=== PATIENT | male | born 1960 | race Caucasian/White ===

== ENCOUNTER 2018-02-24 09:20 | Outpatient (CLI) | payer MEDICARE ==
[2018-02-24] MEDS ORDERED: Iopamidol 370 76% 100 ML VIAL ONE (14:28)
== END 2018-02-24 09:21 | disposition home or self-care (01) ==
LOC: BICCT 09:20
PROVIDERS: ATTEND Internal Medicine Geriatric Medicine
DX: R94.5 Abnormal results of liver function studies; K80.20 Calculus of gallbladder without cholecystitis without obstruction
CPT/HCPCS: 74160

== ENCOUNTER 2018-05-30 12:01 | Outpatient (CLI) | payer MEDICARE ==
--- NOTE | 2018-05-30 13:12 | RAD ---
LUMBAR SPINE FOUR VIEWS: History: 58-year-old male with spondylosis lumbar region. Comparison: 04-25-18 FINDINGS: Mild levoscoliosis. Multilevel disc osteophytosis and facet arthrosis. No abnormal translation betwee n flexion and extension. IMPRESSION: Mild levoscoliosis with lumbar spondylosis. POS: [facility]
--- NOTE | 2018-05-30 14:10 | RAD ---
THREE VIEWS THORACIC SPINE: History: Radiculopathy thoracic region. FINDINGS: AP, lateral, and swimmer's view thoracic spine is obtained. The thoracic spine is unremarkable. No evidence of thoracic spine fractures, subluxation, or bony les ions seen. IMPRESSION: Normal three views thoracic spine. POS: [facility]
== END 2018-05-30 12:02 | disposition home or self-care (01) ==
LOC: RAD 12:01
PROVIDERS: ATTEND Nurse Practitioner Family
DX: M47.816 Spondylosis without myelopathy or radiculopathy, lumbar region (principal); M54.14 Radiculopathy, thoracic region; M41.9 Scoliosis, unspecified
CPT/HCPCS: 72072; 72100

== ENCOUNTER 2018-12-08 10:44 | Outpatient (CLI) | payer MEDICARE ==
--- NOTE | 2018-12-08 13:18 | RAD ---
CERVICAL SPINE 3 VIEWS: HISTORY: Neck pain. FINDINGS: Lateral views include neutral, flexion, and extension positioning. Vertebral body height and alignme nt are maintained. No abnormal translational motion upon flexion or extension. Mild osteophytosis. Cervicothoracic junction not well visualized. IMPRESSION: Mild degenerative changes. No acute osseous abnormalities are demonstrated. POS: [facility]
== END 2018-12-08 10:45 | disposition home or self-care (01) ==
LOC: RAD 10:44
PROVIDERS: ATTEND Nurse Practitioner Family
DX: M47.22 Other spondylosis with radiculopathy, cervical region (principal)
CPT/HCPCS: 72040

== ENCOUNTER 2019-03-16 14:30 | Outpatient (CLI) | payer MEDICARE ==
--- NOTE | 2019-03-16 15:42 | ULT ---
Venous duplex sonogram left lower extremity HISTORY: Left leg pain and edema. FINDINGS: The left common femoral vein and greater saphenous junction are evaluated along the femoral , deep femoral, popliteal and posterior tibial veins. There is good Doppler flow, compression, and augmentation. IMPRESSION: No sonographic evidence of DVT within the left lower extremity.
== END 2019-03-16 14:31 | disposition home or self-care (01) ==
LOC: ULT 14:30
PROVIDERS: ATTEND Family Medicine
DX: M79.605 Pain in left leg (principal)

== ENCOUNTER 2019-07-25 09:53 | Outpatient (CLI) | payer MEDICARE ==
--- NOTE | 2019-07-25 12:50 | MRI ---
MR OF THE CERVICAL SPINE WITHOUT CONTRAST: 07/25/19 INDICATION: History of radiculopathy. COMPARISON: Spinal radiographs dated 12/08/18. FINDINGS: Bone marrow signal intensity appears within normal limits. The visualized aspects of the posterior fossa and prevertebral soft tissues appear within normal limi ts. At C2-C3, there is mild facet joint degenerative change. At C3-C4, there is uncovertebral hypertrophy and facet hypertrophy greater on the right inducing mild right neural foraminal narrowing. At C4-C5, there is mild uncovertebral hypertrophy and mild to moderate facet joint degenerative alberto e. At C5-C6, there is a broad based bulge inducing mild central canal narrowing without definite cord co ntact. There is uncovertebral hypertrophy and facet joint degenerative change on the left causing mil d left neural foraminal narrowing. At C6-C7, there is no appreciable central canal or neural foraminal narrowing. At C7-T1, there is no appreciable central canal or neural foraminal narrowing. IMPRESSION: 1. Mild central canal narrowing and mild left neural foraminal narrowing at C5-C6. 2. Mild right neural foraminal narrowing at C3-C4. 3. Mild multilevel spondylosis of the cervical spine. POS: [facility]
== END 2019-07-25 09:54 | disposition home or self-care (01) ==
LOC: SCSMRI 09:53
PROVIDERS: ATTEND Nurse Practitioner Family
DX: M47.22 Other spondylosis with radiculopathy, cervical region (principal); M48.02 Spinal stenosis, cervical region
CPT/HCPCS: 72141

== ENCOUNTER 2019-08-09 09:30 | Outpatient (CLI) | payer MEDICARE ==
--- NOTE | 2019-08-09 10:09 | ULT ---
EXAM: Left lower extremity venous Doppler US HISTORY: left lower extremity edema and pain FINDINGS: Grayscale, color-flow, Doppler evaluation, spectral analysis of the left lower extremity venous struc tures is performed with 2-D imaging. The left common femoral, superficial femoral, popliteal, posterior tibial, proximal greater saphenous and profunda femoral veins are imaged. There is normal luminal compressibility, flow, and augmentation the visualized deep venous structures of the left lower extremity. IMPRESSION: No evidence of a deep vein thrombosis in the left lower extremity.
== END 2019-08-09 09:31 | disposition home or self-care (01) ==
LOC: ULT 09:30
PROVIDERS: ATTEND Physician Assistant
DX: M79.89 Other specified soft tissue disorders (principal)

== ENCOUNTER 2021-02-13 13:32 | Outpatient (CLI) | payer MEDICARE | END 2021-02-13 13:33 | disposition home or self-care (01) | LOC: BICMRI 13:32 | PROVIDERS: ATTEND Nurse Practitioner Family | DX: M47.812 Spondylosis without myelopathy or radiculopathy, cervical region (principal); M50.20 Other cervical disc displacement, unspecified cervical region; M48.02 Spinal stenosis, cervical region; M50.80 Other cervical disc disorders, unspecified cervical region | CPT/HCPCS: 72050; 72141 ==

== ENCOUNTER 2022-06-29 09:46 | Inpatient (IN) | payer MEDICARE, OTHER ==
[2022-06-29 11:08] LABS: ALT (SGPT) 21 U/L (8-55); AST (SGOT) 29 U/L (5-34); Albumin 3.7 g/dL (3.4-4.8); Alkaline Phosphatase 56 U/L (40-110); Anion Gap 20 mmol/L (10-20); BUN (Urea Nitrogen) 20 mg/dL (8.4-25.7); Calc. Creatinine Clearance 0 mL/min (70-130); Calcium 8.8 mg/dL (7.8-10.44); Carbon Dioxide 20 mmol/L (23-31); Chloride 101 mmol/L (98-107); Estimated GFR 33; Globulin 2.7 g/dL (2.4-3.5); Glucose 93 mg/dL (80-115); INR-International Normal Ratio 1.1; Potassium 3.8 mmol/L (3.5-5.1); Protein, Total 6.4 g/dL (5.8-8.1); Prothrombin Time 14.4 sec (12.0-14.7); Sodium 137 mmol/L (136-145)
[2022-06-29 11:09] LABS: PTT 26.1 sec (22.9-36.1)
[2022-06-29 11:46] LABS: Mean Corpuscular HGB CONC 34.2 g/dL (32.0-36.0); Mean Corpuscular Hemoglobin 34.3 pg (27.0-31.0); Red Blood Cell (RBC) Count 3.22 mill/uL (4.70-6.10); White Blood Cell (WBC) Count 2.4 thou/uL (4.8-10.8)
[2022-06-29 11:57] LABS: #Lymphocytes 0.4 thou/uL (1.20-3.40); #Monocytes 0.3 thou/uL (0.11-0.59); #Neutrophils 1.6 thou/uL (1.40-6.50); %Eosinophils 1.4 % (0.0-10.0); %Lymphocytes 17.4 % (21.0-51.0); %Monocytes 14.2 % (0.0-10.0); %Neutrophils 67.1 % (42.0-75.0); MDiff Complete? YES; Macrocytosis SLIGHT = 6-15 cells (100X) (0-5/hpf); Mean Platelet Volume 10.3 fL (7.4-10.4); Platelet Count 84 thou/uL (130-400); Platelet Morphology Comment Appears Decreased; Polychromasia MODERATE = 3-4 cells (100X) (0-2/hpf); RBC Distribution Width 14.4 % (11.5-14.5)
[2022-06-29] MEDS ORDERED: Acetaminophen 325 MG TAB ONE (12:49)
[2022-06-29] MEDS ORDERED: Acetaminophen 650 MG Suppository ONE (12:49)
[2022-06-29] MEDS ORDERED: hydrALAZINE 20 MG/ML VIAL SLOW IVP PRN (14:29)
[2022-06-29] MEDS ORDERED: Aspirin Chewable 81 MG TAB ONE (14:29)
[2022-06-29] MEDS ORDERED: Ondansetron ODT 4 MG TAB PO PRN (14:35)
[2022-06-29] MEDS ORDERED: Lorazepam 2 MG/ML VIAL IM PRN (14:43)
[2022-06-29] MEDS ORDERED: Lorazepam 1 MG TAB PO PRN (14:43)
[2022-06-29] MEDS ORDERED: Electrolyte Replacement Protocol FS PRN (14:45)
[2022-06-29 15:24] LABS: Bilirubin, Direct 0.6 mg/dL (0.1-0.3); Magnesium 1.2 mg/dL (1.6-2.6)
[2022-06-29 15:32] LABS: Phosphorus 1.3 mg/dL (2.3-4.7)
[2022-06-29] MEDS ORDERED: Multivit, Therapeutic 1 TAB PO SCH (18:00)
[2022-06-29] MEDS ORDERED: Folic Acid 1 MG TAB PO SCH (18:00)
[2022-06-29 19:02] LABS: Syphilis Antibody Nonreactive (Nonreactive); Syphilis Antibody Index 0.07 S/CO (<1.00 Non-Reactive)
[2022-06-29] MEDS ORDERED: Magnesium Sulfate In Water 4 GM in Premix Bag 1 BAG IVPB SCH (21:00)
[2022-06-29] MEDS: Lorazepam 1 MG TAB PO SCH ×2 (21:04→21:15)
[2022-06-29] MEDS: Aggrenox 200-25mg CAP PO SCH (21:15)
[2022-06-29] MEDS: Atorvastatin Calcium 40 MG TAB PO SCH (21:15)
[2022-06-29] MEDS: Famotidine 20 MG TAB PO SCH (21:16)
[2022-06-29] MEDS: PHOS-NAK 1 PKT PACK PO SCH (21:17)
[2022-06-29] MEDS: Nicotine 14 MG PATCH TD SCH (21:18)
[2022-06-29] MEDS: Thiamine HCl 200 MG/2 ML VIAL SLOW IVP SCH (21:18)
[2022-06-29 22:26] LABS: Amphetamine Not Detected (NotDetected); Barbiturates Screen Not Detected (NotDetected); Benzodiazepine Screen Not Detected (NotDetected); Cocaine Metabolite Screen Not Detected (NotDetected); Methadone Not Detected (NotDetected); Methamphetamine Not Detected (NotDetected); Opiate Screen Detected (NotDetected); Oxycodone Screen Not Detected (NotDetected); Phencyclidine (PCP) Not Detected (NotDetected); THC/Cannabinoid Screen Not Detected (NotDetected); Tricyclic Screen Not Detected (NotDetected)
[2022-06-29 23:30] VITALS: BMI 23.8
[2022-06-29] MEDS: Acetaminophen 325 MG TAB PO PRN (23:44)
[2022-06-30] MEDS ORDERED: Acetaminophen 500 MG TAB PO PRN (01:09)
[2022-06-30] MEDS ORDERED: Ibuprofen 200 MG TAB PO PRN (01:11)
[2022-06-30] MEDS ORDERED: Acetaminophen 325 MG TAB PO SCH (01:15)
[2022-06-30] MEDS ORDERED: Pancrelipase DR 12,000 1 CAP ONE ×2 (01:23→02:11)
[2022-06-30] MEDS: PHOS-NAK 1 PKT PACK PO SCH ×3 (01:27→10:47)
[2022-06-30] MEDS: Lorazepam 1 MG TAB PO SCH ×5 (03:30→21:54)
[2022-06-30] MEDS: Sodium Chloride 0.9% 1,000 ML IV SCH ×4 (03:43→22:11)
[2022-06-30 05:55] LABS: ALT (SGPT) 24 U/L (8-55); AST (SGOT) 37 U/L (5-34); Albumin 3.4 g/dL (3.4-4.8); Alkaline Phosphatase 61 U/L (40-110); Anion Gap 17 mmol/L (10-20); BUN (Urea Nitrogen) 23 mg/dL (8.4-25.7); Bilirubin, Total 0.7 mg/dL (0.2-1.2); Calc. Creatinine Clearance 44 mL/min (70-130); Calcium 8.6 mg/dL (7.8-10.44); Carbon Dioxide 22 mmol/L (23-31); Cardiac Risk 2.1 (Less than 4.5); Chloride 100 mmol/L (98-107); Cholesterol 98 mg/dl (< 200 Desired); Estimated GFR 34; Globulin 2.7 g/dL (2.4-3.5); Glucose 100 mg/dL (80-115); HDL Cholesterol 47 mg/dL (>60 Neg Risk); LDL Cholesterol, Calculated 40 mg/dL; Potassium 3.5 mmol/L (3.5-5.1); Protein, Total 6.1 g/dL (5.8-8.1); Sodium 135 mmol/L (136-145); Triglycerides 53 mg/dL (Less than 150)
[2022-06-30 06:44] LABS: Magnesium 2.3 mg/dL (1.6-2.6)
[2022-06-30] MEDS ORDERED: Potassium Chloride 20 MEQ TAB PO SCH (10:30)
[2022-06-30] MEDS: Aggrenox 200-25mg CAP PO SCH ×2 (10:47→21:55)
[2022-06-30] MEDS: Multivit, Therapeutic 1 TAB PO SCH (10:48)
[2022-06-30] MEDS: Aspirin 81 mg Enteric Coated Tablet PO SCH (10:48)
[2022-06-30] MEDS: Famotidine 20 MG TAB PO SCH ×2 (10:48→21:55)
[2022-06-30] MEDS: Folic Acid 1 MG TAB PO SCH (10:48)
[2022-06-30] MEDS ORDERED: Lorazepam 1 MG TAB PO PRN (14:43)
[2022-06-30] MEDS: Nicotine 14 MG PATCH TD SCH (17:43)
[2022-06-30] MEDS: Thiamine HCl 200 MG/2 ML VIAL SLOW IVP SCH (17:43)
[2022-06-30] MEDS: Atorvastatin Calcium 40 MG TAB PO SCH (21:55)
[2022-06-30] MEDS: Loperamide HCl 1 MG/7.5 ML UDCUP PO PRN (22:11)
[2022-06-30] MEDS ORDERED: Sodium Chloride 0.9% 1,000 ML IV SCH (22:34)
[2022-07-01] MEDS: Acetaminophen 325 MG TAB PO PRN (03:41)
[2022-07-01] MEDS: Lorazepam 1 MG TAB PO SCH ×2 (03:42→09:46)
[2022-07-01] MEDS: Ondansetron ODT 4 MG TAB PO PRN (03:42)
[2022-07-01 06:06] LABS: ALT (SGPT) 21 U/L (8-55); AST (SGOT) 34 U/L (5-34); Albumin 3.8 g/dL (3.4-4.8); Alkaline Phosphatase 71 U/L (40-110); Anion Gap 15 mmol/L (10-20); BUN (Urea Nitrogen) 28 mg/dL (8.4-25.7); Bilirubin, Total 0.7 mg/dL (0.2-1.2); Calc. Creatinine Clearance 40 mL/min (70-130); Calcium 8.7 mg/dL (7.8-10.44); Carbon Dioxide 22 mmol/L (23-31); Chloride 101 mmol/L (98-107); Estimated GFR 30; Globulin 3.1 g/dL (2.4-3.5); Glucose 110 mg/dL (80-115); Phosphorus 2.6 mg/dL (2.3-4.7); Potassium 3.7 mmol/L (3.5-5.1); Protein, Total 6.9 g/dL (5.8-8.1); Sodium 134 mmol/L (136-145)
[2022-07-01] MEDS: Famotidine 20 MG TAB PO SCH (09:46)
[2022-07-01] MEDS: Aspirin 81 mg Enteric Coated Tablet PO SCH (09:46)
[2022-07-01] MEDS: Multivit, Therapeutic 1 TAB PO SCH (09:47)
[2022-07-01] MEDS: Folic Acid 1 MG TAB PO SCH (09:47)
[2022-07-01] MEDS: Aggrenox 200-25mg CAP PO SCH ×2 (09:50→20:19)
[2022-07-01] MEDS ORDERED: Lorazepam 1 MG TAB PO PRN (14:43)
[2022-07-01] MEDS ORDERED: Lorazepam 0.5 MG TAB PO SCH (14:45)
[2022-07-01] MEDS ORDERED: Lactated Ringer's 1,000 ML IV SCH (15:00)
[2022-07-01] MEDS: Lactated Ringer's 1,000 ML IV SCH ×2 (15:42→23:59)
[2022-07-01 16:48] LABS: ALT (SGPT) 22 U/L (8-55); AST (SGOT) 40 U/L (5-34); Alkaline Phosphatase 77 U/L (40-110); Bilirubin, Direct 0.4 mg/dL (0.1-0.3); Bilirubin, Total 0.7 mg/dL (0.2-1.2); Protein, Total 7.2 g/dL (5.8-8.1)
[2022-07-01 17:08] LABS: Free T4 (Free Thyroxine) 0.75 ng/dL (0.70-1.48)
[2022-07-01 17:15] LABS: Thyroid Stimulating Hormone 0.7106 uIU/mL (0.35-4.94)
[2022-07-01] MEDS: Nicotine 14 MG PATCH TD SCH (18:21)
[2022-07-01] MEDS ORDERED: Diazepam 5 MG TAB PO PRN ×2 (18:23→18:28)
[2022-07-01] MEDS: Atorvastatin Calcium 40 MG TAB PO SCH (20:19)
[2022-07-01] MEDS: Acetaminophen 500 MG TAB PO PRN (20:32)
[2022-07-01] MEDS: Loperamide HCl 1 MG/7.5 ML UDCUP PO PRN (23:59)
[2022-07-02 05:41] LABS: ALT (SGPT) 23 U/L (8-55); AST (SGOT) 34 U/L (5-34); Albumin 3.8 g/dL (3.4-4.8); Alkaline Phosphatase 66 U/L (40-110); Anion Gap 15 mmol/L (10-20); BUN (Urea Nitrogen) 29 mg/dL (8.4-25.7); Bilirubin, Total 0.6 mg/dL (0.2-1.2); Calc. Creatinine Clearance 41 mL/min (70-130); Calcium 8.6 mg/dL (7.8-10.44); Carbon Dioxide 20 mmol/L (23-31); Chloride 103 mmol/L (98-107); Estimated GFR 31; Globulin 3.2 g/dL (2.4-3.5); Glucose 109 mg/dL (80-115); Potassium 3.6 mmol/L (3.5-5.1); Sodium 134 mmol/L (136-145)
[2022-07-02] MEDS: Lactated Ringer's 1,000 ML IV SCH ×3 (06:59→16:46)
[2022-07-02] MEDS ORDERED: Lorazepam 2 MG/ML VIAL SLOW IVP SCH (09:15)
[2022-07-02] MEDS: Aggrenox 200-25mg CAP PO SCH ×2 (09:40→21:05)
[2022-07-02] MEDS: Aspirin 81 mg Enteric Coated Tablet PO SCH (09:40)
[2022-07-02] MEDS: Cefepime 1 GM in Sodium Chloride 0.9% 100 ML IVPB SCH ×2 (09:45→21:04)
[2022-07-02] MEDS: Folic Acid 1 MG TAB PO SCH (09:57)
[2022-07-02] MEDS: Multivit, Therapeutic 1 TAB PO SCH (09:57)
[2022-07-02] MEDS: Famotidine 20 MG TAB PO SCH (09:57)
[2022-07-02] MEDS ORDERED: chlordiazePOXIDE HCl 25 MG CAP PO SCH (10:00)
[2022-07-02] MEDS ORDERED: VANCOMYCIN 1.75 GM/500 ML BAG 1.75 GM in Premix Bag 1 BAG IVPB SCH (10:00)
[2022-07-02] MEDS: Lorazepam (BATCHED) 2 MG/ML SYR SLOW IVP SCH ×2 (10:16→13:53)
[2022-07-02 13:19] LABS: Campy jejuni + coli by PCR Negative (Negative); STEC Shiga Toxin 1+2 Negative (Negative); Salmonella spp. by PCR Negative (Negative); Shigella spp + EIEC by PCR Negative (Negative)
[2022-07-02] MEDS: Ondansetron PF 4 MG/2 ML Vial IVP PRN (13:46)
[2022-07-02] MEDS ORDERED: Metoprolol Tartrate 5 MG/5 ML VIAL ONE (14:06)
[2022-07-02] MEDS ORDERED: Lorazepam 0.5 MG TAB PO PRN (14:43)
[2022-07-02] MEDS: chlordiazePOXIDE HCl 25 MG CAP PO SCH ×2 (15:02→21:06)
[2022-07-02] MEDS: Potassium Chloride 20 MEQ in Premix Bag 1 BAG IVPB SCH ×3 (15:02→21:03)
[2022-07-02] MEDS ORDERED: Lorazepam (BATCHED) 2 MG/ML SYR SLOW IVP SCH (15:15)
[2022-07-02] MEDS ORDERED: Lorazepam 2 MG/ML VIAL ONE (15:16)
[2022-07-02] MEDS: Nicotine 14 MG PATCH TD SCH (17:28)
[2022-07-02] MEDS: Midazolam HCl 2 mg/2 ml Vial SLOW IVP SCH ×2 (17:33→21:37)
[2022-07-02] MEDS ORDERED: Thiamine 100 MG TAB PO SCH (18:00)
[2022-07-02] MEDS: Atorvastatin Calcium 40 MG TAB PO SCH (21:06)
[2022-07-02] MEDS: Loperamide HCl 1 MG/7.5 ML UDCUP PO PRN (22:11)
[2022-07-03] MEDS: Midazolam HCl 2 mg/2 ml Vial SLOW IVP SCH ×2 (02:37→02:46)
[2022-07-03] MEDS: Lactated Ringer's 1,000 ML IV SCH ×4 (02:45→17:49)
[2022-07-03] MEDS: Loperamide HCl 1 MG/7.5 ML UDCUP PO PRN (03:52)
[2022-07-03 04:31] LABS: Anion Gap 16 mmol/L (10-20); BUN (Urea Nitrogen) 27 mg/dL (8.4-25.7); Calc. Creatinine Clearance 51 mL/min (70-130); Carbon Dioxide 14 mmol/L (23-31); Chloride 107 mmol/L (98-107); Potassium 4.3 mmol/L (3.5-5.1); Sodium 133 mmol/L (136-145)
[2022-07-03 04:32] LABS: ALT (SGPT) 18 U/L (8-55); AST (SGOT) 26 U/L (5-34); Albumin 3.6 g/dL (3.4-4.8); Alkaline Phosphatase 52 U/L (40-110); Bilirubin, Total 0.6 mg/dL (0.2-1.2); Calcium 8.3 mg/dL (7.8-10.44); Estimated GFR 41; Globulin 2.9 g/dL (2.4-3.5); Glucose 106 mg/dL (80-115); Magnesium 1.5 mg/dL (1.6-2.6); Protein, Total 6.5 g/dL (5.8-8.1)
[2022-07-03] MEDS ORDERED: Magnesium 2 GM/50 ML(in water) 2 GM in Premix Bag 1 BAG IVPB SCH (06:00)
[2022-07-03] MEDS ORDERED: Loperamide HCl 1 MG/7.5 ML UDCUP PO PRN (08:43)
[2022-07-03] MEDS: Multivit, Therapeutic 1 TAB PO SCH (09:38)
[2022-07-03] MEDS: Folic Acid 1 MG TAB PO SCH (09:38)
[2022-07-03] MEDS: Aggrenox 200-25mg CAP PO SCH ×2 (09:38→20:49)
[2022-07-03] MEDS: chlordiazePOXIDE HCl 25 MG CAP PO SCH ×3 (09:38→20:49)
[2022-07-03] MEDS: Famotidine 20 MG TAB PO SCH (09:38)
[2022-07-03] MEDS: Aspirin 81 mg Enteric Coated Tablet PO SCH (09:38)
[2022-07-03] MEDS: Cefepime 1 GM in Sodium Chloride 0.9% 100 ML IVPB SCH ×2 (09:39→20:49)
[2022-07-03] MEDS: VANCOMYCIN 1.25 GM/250 ML BAG 1.25 GM in Premix Bag 1 BAG IVPB SCH (09:44)
[2022-07-03] MEDS: Loperamide HCl 1 MG/7.5 ML UDCUP PO SCH ×4 (09:48→21:02)
[2022-07-03] MEDS ORDERED: Sodium Bicarbonate 150 MEQ in Dextrose 5% in Water 1,000 ML IV SCH (10:00)
[2022-07-03] MEDS ORDERED: Midazolam HCl 2 mg/2 ml Vial SLOW IVP PRN (10:20)
[2022-07-03] MEDS ORDERED: Lactated Ringer's 500 ML IV SCH (11:00)
[2022-07-03 11:15] LABS: Band 21 % (5-11); Hemoglobin 11.7 g/dL (14.0-18.0); Lymphocytes 6 % (21-51); MDiff Complete? YES; Macrocytosis SLIGHT = 6-15 cells (100X) (0-5/hpf); Mean Corpuscular HGB CONC 33.4 g/dL (32.0-36.0); Mean Corpuscular Hemoglobin 33.5 pg (27.0-31.0); Mean Platelet Volume 10.6 fL (7.4-10.4); Monocytes 19 % (0-10); Neutrophil 52 % (42-75); Platelet Count 105 thou/uL (130-400); Platelet Morphology Comment Appears Decreased; RBC Distribution Width 14.6 % (11.5-14.5); Reactive Lymphocytes 2 % (0-10); Red Blood Cell (RBC) Count 3.51 mill/uL (4.70-6.10); White Blood Cell (WBC) Count 4.8 thou/uL (4.8-10.8)
[2022-07-03] MEDS: Mag-Al 1200 mg/1200 mg/30 ML UDCUP PO PRN (12:57)
[2022-07-03] MEDS: Nicotine 14 MG PATCH TD SCH (15:39)
[2022-07-03] MEDS: Atorvastatin Calcium 40 MG TAB PO SCH (20:49)
[2022-07-03] MEDS: Ondansetron PF 4 MG/2 ML Vial IVP PRN (20:53)
[2022-07-04] MEDS: Lactated Ringer's 1,000 ML IV SCH ×3 (01:46→21:19)
[2022-07-04] MEDS: Mag-Al 1200 mg/1200 mg/30 ML UDCUP PO PRN (01:46)
[2022-07-04] MEDS: Loperamide HCl 1 MG/7.5 ML UDCUP PO SCH ×2 (01:46→06:10)
[2022-07-04] MEDS: Ondansetron ODT 4 MG TAB PO PRN (01:46)
[2022-07-04] MEDS: Metoprolol Tartrate 5 MG/5 ML VIAL IVP PRN ×2 (03:37→05:07)
[2022-07-04] MEDS ORDERED: Electrolyte Replacement Protocol 1 EACH FS SCH (05:15)
[2022-07-04] MEDS ORDERED: Magnesium 2 GM/50 ML(in water) 2 GM in Premix Bag 1 BAG IVPB SCH (08:00)
[2022-07-04 08:02] LABS: #Lymphocytes 0.9 thou/uL (1.20-3.40); #Monocytes 0.4 thou/uL (0.11-0.59); #Neutrophils 1.8 thou/uL (1.40-6.50); %Basophils 0.2 % (0.0-1.0); %Eosinophils 0.4 % (0.0-10.0); %Lymphocytes 28.3 % (21.0-51.0); %Monocytes 14.3 % (0.0-10.0); %Neutrophils 56.8 % (42.0-75.0); Hemoglobin 10.5 g/dL (14.0-18.0); Mean Corpuscular HGB CONC 33.8 g/dL (32.0-36.0); Mean Corpuscular Hemoglobin 33.3 pg (27.0-31.0); Mean Corpuscular Volume 98.5 fL (78.0-98.0); Mean Platelet Volume 10.2 fL (7.4-10.4); Platelet Count 89 thou/uL (130-400); RBC Distribution Width 14.6 % (11.5-14.5); Red Blood Cell (RBC) Count 3.16 mill/uL (4.70-6.10); White Blood Cell (WBC) Count 3.1 thou/uL (4.8-10.8)
[2022-07-04 08:13] LABS: ALT (SGPT) 15 U/L (8-55); AST (SGOT) 22 U/L (5-34); Alkaline Phosphatase 46 U/L (40-110); Anion Gap 12 mmol/L (10-20); BUN (Urea Nitrogen) 23 mg/dL (8.4-25.7); Bilirubin, Total 0.7 mg/dL (0.2-1.2); Calc. Creatinine Clearance 54 mL/min (70-130); Calcium 7.9 mg/dL (7.8-10.44); Carbon Dioxide 22 mmol/L (23-31); Chloride 105 mmol/L (98-107); Estimated GFR 47; Globulin 2.5 g/dL (2.4-3.5); Glucose 103 mg/dL (80-115); Magnesium 2.7 mg/dL (1.6-2.6); Potassium 3.5 mmol/L (3.5-5.1); Protein, Total 5.5 g/dL (5.8-8.1); Sodium 135 mmol/L (136-145)
[2022-07-04] MEDS: chlordiazePOXIDE HCl 25 MG CAP PO SCH ×2 (08:48→21:18)
[2022-07-04] MEDS: Folic Acid 1 MG TAB PO SCH (08:48)
[2022-07-04] MEDS: Famotidine 20 MG TAB PO SCH (08:48)
[2022-07-04] MEDS: Multivit, Therapeutic 1 TAB PO SCH (08:48)
[2022-07-04] MEDS: Aspirin 81 mg Enteric Coated Tablet PO SCH (08:48)
[2022-07-04] MEDS: Aggrenox 200-25mg CAP PO SCH ×2 (08:48→21:19)
[2022-07-04] MEDS: Cefepime 1 GM in Sodium Chloride 0.9% 100 ML IVPB SCH (08:49)
[2022-07-04] MEDS ORDERED: Potassium Chloride 20 MEQ TAB PO SCH (09:00)
[2022-07-04 09:17] LABS: Vancomycin, Trough 19.8 ug/mL
[2022-07-04] MEDS: VANCOMYCIN 1.25 GM/250 ML BAG 1.25 GM in Premix Bag 1 BAG IVPB SCH (11:21)
[2022-07-04] MEDS: Nicotine 14 MG PATCH TD SCH (17:11)
[2022-07-04] MEDS ORDERED: Baclofen 10 MG TAB PO SCH (19:15)
[2022-07-04] MEDS ORDERED: chlordiazePOXIDE HCl 25 MG CAP PO SCH (21:00)
[2022-07-04] MEDS: cefTRIAXone\\ROCEPHIN 2 GM in Sodium Chloride 0.9% 100 ML IVPB SCH (21:17)
[2022-07-04] MEDS: Atorvastatin Calcium 40 MG TAB PO SCH (21:18)
[2022-07-05 01:01] LABS: #Lymphocytes 0.6 thou/uL (1.20-3.40); #Monocytes 0.3 thou/uL (0.11-0.59); #Neutrophils 1.1 thou/uL (1.40-6.50); %Basophils 0.5 % (0.0-1.0); %Eosinophils 0.8 % (0.0-10.0); %Monocytes 12.9 % (0.0-10.0); %Neutrophils 54.9 % (42.0-75.0); Hemoglobin 9.9 g/dL (14.0-18.0); Mean Corpuscular Hemoglobin 33.3 pg (27.0-31.0); Mean Platelet Volume 9.8 fL (7.4-10.4); Platelet Count 86 thou/uL (130-400); RBC Distribution Width 14.6 % (11.5-14.5); Red Blood Cell (RBC) Count 2.96 mill/uL (4.70-6.10); White Blood Cell (WBC) Count 1.9 thou/uL (4.8-10.8)
[2022-07-05 01:15] LABS: Lactic Acid 0.5 mmol/L (0.5-2.2)
[2022-07-05 01:19] LABS: ALT (SGPT) 14 U/L (8-55); AST (SGOT) 21 U/L (5-34); Albumin 2.8 g/dL (3.4-4.8); Alkaline Phosphatase 46 U/L (40-110); Anion Gap 13 mmol/L (10-20); BUN (Urea Nitrogen) 17 mg/dL (8.4-25.7); Bilirubin, Total 0.7 mg/dL (0.2-1.2); Calc. Creatinine Clearance 64 mL/min (70-130); Calcium 7.8 mg/dL (7.8-10.44); Carbon Dioxide 19 mmol/L (23-31); Chloride 108 mmol/L (98-107); Estimated GFR 57; Globulin 2.4 g/dL (2.4-3.5); Glucose 88 mg/dL (80-115); Protein, Total 5.2 g/dL (5.8-8.1); Sodium 136 mmol/L (136-145)
[2022-07-05 04:06] LABS: #Lymphocytes 0.6 thou/uL (1.20-3.40); #Monocytes 0.3 thou/uL (0.11-0.59); #Neutrophils 1.1 thou/uL (1.40-6.50); %Eosinophils 0.5 % (0.0-10.0); %Lymphocytes 29.4 % (21.0-51.0); %Neutrophils 57.1 % (42.0-75.0); Hemoglobin 10.3 g/dL (14.0-18.0); Mean Corpuscular HGB CONC 35.2 g/dL (32.0-36.0); Mean Corpuscular Volume 99.3 fL (78.0-98.0); Mean Platelet Volume 10.4 fL (7.4-10.4); Platelet Count 86 thou/uL (130-400); RBC Distribution Width 14.2 % (11.5-14.5); Red Blood Cell (RBC) Count 2.94 mill/uL (4.70-6.10)
[2022-07-05 04:23] LABS: ALT (SGPT) 14 U/L (8-55); AST (SGOT) 21 U/L (5-34); Alkaline Phosphatase 50 U/L (40-110); Anion Gap 13 mmol/L (10-20); BUN (Urea Nitrogen) 17 mg/dL (8.4-25.7); Bilirubin, Total 0.7 mg/dL (0.2-1.2); Calc. Creatinine Clearance 63 mL/min (70-130); Carbon Dioxide 20 mmol/L (23-31); Chloride 107 mmol/L (98-107); Estimated GFR 55; Globulin 2.5 g/dL (2.4-3.5); Glucose 88 mg/dL (80-115); Magnesium 2.1 mg/dL (1.6-2.6); Protein, Total 5.5 g/dL (5.8-8.1); Sodium 136 mmol/L (136-145)
[2022-07-05] MEDS: Lactated Ringer's 1,000 ML IV SCH ×3 (06:40→16:50)
[2022-07-05] MEDS: Famotidine 20 MG TAB PO SCH ×2 (08:55→22:13)
[2022-07-05] MEDS: chlordiazePOXIDE HCl 25 MG CAP PO SCH (08:55)
[2022-07-05] MEDS: Aspirin 81 mg Enteric Coated Tablet PO SCH (08:55)
[2022-07-05] MEDS: Aggrenox 200-25mg CAP PO SCH ×2 (08:55→22:13)
[2022-07-05] MEDS: Folic Acid 1 MG TAB PO SCH (08:55)
[2022-07-05] MEDS: Baclofen 10 MG TAB PO SCH ×3 (08:56→22:13)
[2022-07-05] MEDS: Multivit, Therapeutic 1 TAB PO SCH (08:56)
[2022-07-05] MEDS: Nicotine 14 MG PATCH TD SCH (16:46)
[2022-07-05] MEDS ORDERED: chlordiazePOXIDE HCl 25 MG CAP PO SCH (21:00)
[2022-07-05] MEDS: Atorvastatin Calcium 40 MG TAB PO SCH (22:13)
[2022-07-05] MEDS: cefTRIAXone\\ROCEPHIN 2 GM in Sodium Chloride 0.9% 100 ML IVPB SCH (22:13)
[2022-07-06] MEDS: Lactated Ringer's 1,000 ML IV SCH ×3 (06:23→21:51)
[2022-07-06 08:03] LABS: ALT (SGPT) 10 U/L (8-55); AST (SGOT) 20 U/L (5-34); Albumin 2.9 g/dL (3.4-4.8); Alkaline Phosphatase 50 U/L (40-110); Anion Gap 15 mmol/L (10-20); BUN (Urea Nitrogen) 12 mg/dL (8.4-25.7); Bilirubin, Total 0.6 mg/dL (0.2-1.2); Calc. Creatinine Clearance 75 mL/min (70-130); Calcium 8.1 mg/dL (7.8-10.44); Carbon Dioxide 18 mmol/L (23-31); Chloride 108 mmol/L (98-107); Estimated GFR 66; Globulin 2.6 g/dL (2.4-3.5); Glucose 80 mg/dL (80-115); Potassium 3.8 mmol/L (3.5-5.1); Protein, Total 5.5 g/dL (5.8-8.1); Sodium 137 mmol/L (136-145)
[2022-07-06] MEDS ORDERED: Magnesium 2 GM/50 ML(in water) 2 GM in Premix Bag 1 BAG IVPB SCH (08:15)
[2022-07-06 08:21] LABS: Hemoglobin 9.8 g/dL (14.0-18.0); Mean Corpuscular HGB CONC 34.1 g/dL (32.0-36.0); Mean Corpuscular Hemoglobin 33.7 pg (27.0-31.0); Mean Corpuscular Volume 98.8 fL (78.0-98.0); Mean Platelet Volume 9.8 fL (7.4-10.4); Platelet Count 94 thou/uL (130-400); RBC Distribution Width 14.4 % (11.5-14.5); Red Blood Cell (RBC) Count 2.91 mill/uL (4.70-6.10); White Blood Cell (WBC) Count 1.8 thou/uL (4.8-10.8)
[2022-07-06 09:10] LABS: Band 6 % (5-11); Lymphocytes 34 % (21-51); MDiff Complete? YES; Metamyelocyte 2 % (0-0); Monocytes 10 % (0-10); Neutrophil 48 % (42-75); Platelet Morphology Comment Appears Decreased; Polychromasia SLIGHT = 2-3 cells (100X) (0-2/hpf)
[2022-07-06] MEDS: Multivit, Therapeutic 1 TAB PO SCH (12:08)
[2022-07-06] MEDS: Baclofen 10 MG TAB PO SCH ×4 (12:09→22:09)
[2022-07-06] MEDS: Famotidine 20 MG TAB PO SCH ×3 (12:10→22:09)
[2022-07-06] MEDS: Folic Acid 1 MG TAB PO SCH (12:10)
[2022-07-06] MEDS: Aggrenox 200-25mg CAP PO SCH (12:17)
[2022-07-06] MEDS: Aspirin 81 mg Enteric Coated Tablet PO SCH (16:57)
[2022-07-06] MEDS: Nicotine 14 MG PATCH TD SCH (17:07)
[2022-07-06] MEDS: cefTRIAXone\\ROCEPHIN 2 GM in Sodium Chloride 0.9% 100 ML IVPB SCH (21:51)
[2022-07-06] MEDS: Apixaban 5 MG TAB PO SCH ×2 (21:51→22:09)
[2022-07-06] MEDS: Atorvastatin Calcium 40 MG TAB PO SCH ×2 (21:52→22:09)
[2022-07-07 05:31] LABS: ALT (SGPT) 13 U/L (8-55); AST (SGOT) 23 U/L (5-34); Albumin 3.3 g/dL (3.4-4.8); Alkaline Phosphatase 57 U/L (40-110); Anion Gap 17 mmol/L (10-20); BUN (Urea Nitrogen) 9 mg/dL (8.4-25.7); Bilirubin, Total 0.6 mg/dL (0.2-1.2); Calc. Creatinine Clearance 75 mL/min (70-130); Calcium 8.5 mg/dL (7.8-10.44); Carbon Dioxide 17 mmol/L (23-31); Chloride 105 mmol/L (98-107); Estimated GFR 67; Globulin 2.7 g/dL (2.4-3.5); Glucose 80 mg/dL (80-115); Magnesium 2.1 mg/dL (1.6-2.6); Potassium 3.7 mmol/L (3.5-5.1); Sodium 135 mmol/L (136-145)
[2022-07-07] MEDS: Lactated Ringer's 1,000 ML IV SCH ×3 (05:45→21:59)
[2022-07-07] MEDS: Apixaban 5 MG TAB PO SCH ×2 (12:05→20:39)
[2022-07-07] MEDS: Aspirin 81 mg Enteric Coated Tablet PO SCH (12:05)
[2022-07-07] MEDS: Famotidine 20 MG TAB PO SCH ×2 (12:05→20:39)
[2022-07-07] MEDS: Folic Acid 1 MG TAB PO SCH (12:05)
[2022-07-07] MEDS: Multivit, Therapeutic 1 TAB PO SCH (12:05)
[2022-07-07] MEDS: Baclofen 10 MG TAB PO SCH ×3 (12:05→20:39)
[2022-07-07] MEDS: Thiamine HCl 200 MG/2 ML VIAL IM SCH (12:06)
[2022-07-07] MEDS: Nicotine 14 MG PATCH TD SCH (15:26)
[2022-07-07 18:18] LABS: Eosinophils 1 % (0-10); Hemoglobin 10.6 g/dL (14.0-18.0); Lymphocytes 25 % (21-51); MDiff Complete? YES; Macrocytosis SLIGHT = 6-15 cells (100X) (0-5/hpf); Mean Corpuscular Hemoglobin 33.9 pg (27.0-31.0); Mean Corpuscular Volume 99.7 fL (78.0-98.0); Mean Platelet Volume 9.7 fL (7.4-10.4); Monocytes 13 % (0-10); Neutrophil 56 % (42-75); Platelet Count 113 thou/uL (130-400); Platelet Morphology Comment Appears Decreased; Polychromasia SLIGHT = 2-3 cells (100X) (0-2/hpf); RBC Distribution Width 14.1 % (11.5-14.5); Reactive Lymphocytes 5 % (0-10); Red Blood Cell (RBC) Count 3.14 mill/uL (4.70-6.10); White Blood Cell (WBC) Count 2.1 thou/uL (4.8-10.8)
[2022-07-07] MEDS: cefTRIAXone\\ROCEPHIN 2 GM in Sodium Chloride 0.9% 100 ML IVPB SCH (20:38)
[2022-07-07] MEDS: Atorvastatin Calcium 40 MG TAB PO SCH (20:39)
[2022-07-08] MEDS: Lactated Ringer's 1,000 ML IV SCH ×3 (00:30→21:05)
[2022-07-08 05:13] LABS: Hemoglobin 10.3 g/dL (14.0-18.0); Mean Corpuscular HGB CONC 33.6 g/dL (32.0-36.0); Mean Corpuscular Hemoglobin 33.4 pg (27.0-31.0); Mean Corpuscular Volume 99.4 fL (78.0-98.0); Mean Platelet Volume 9.6 fL (7.4-10.4); Platelet Count 128 thou/uL (130-400); RBC Distribution Width 14.1 % (11.5-14.5); Red Blood Cell (RBC) Count 3.09 mill/uL (4.70-6.10); White Blood Cell (WBC) Count 2.2 thou/uL (4.8-10.8)
[2022-07-08 05:14] LABS: Lymphocytes 24 % (21-51); MDiff Complete? YES; Monocytes 22 % (0-10); Neutrophil 54 % (42-75)
[2022-07-08 05:20] LABS: ALT (SGPT) 11 U/L (8-55); AST (SGOT) 26 U/L (5-34); Albumin 3.2 g/dL (3.4-4.8); Alkaline Phosphatase 54 U/L (40-110); Anion Gap 18 mmol/L (10-20); BUN (Urea Nitrogen) 6 mg/dL (8.4-25.7); Bilirubin, Total 0.6 mg/dL (0.2-1.2); Calc. Creatinine Clearance 86 mL/min (70-130); Calcium 8.2 mg/dL (7.8-10.44); Carbon Dioxide 19 mmol/L (23-31); Chloride 104 mmol/L (98-107); Estimated GFR 78; Globulin 2.6 g/dL (2.4-3.5); Glucose 74 mg/dL (80-115); Magnesium 1.7 mg/dL (1.6-2.6); Potassium 3.7 mmol/L (3.5-5.1); Protein, Total 5.8 g/dL (5.8-8.1); Sodium 137 mmol/L (136-145)
[2022-07-08] MEDS ORDERED: Magnesium 2 GM/50 ML(in water) 2 GM in Premix Bag 1 BAG IVPB SCH (08:00)
[2022-07-08] MEDS: Thiamine HCl 200 MG/2 ML VIAL IM SCH (10:08)
[2022-07-08] MEDS: Baclofen 10 MG TAB PO SCH ×3 (10:09→20:47)
[2022-07-08] MEDS: Famotidine 20 MG TAB PO SCH ×2 (10:09→20:45)
[2022-07-08] MEDS: Multivit, Therapeutic 1 TAB PO SCH (10:09)
[2022-07-08] MEDS: Folic Acid 1 MG TAB PO SCH (10:09)
[2022-07-08] MEDS: Apixaban 5 MG TAB PO SCH ×2 (10:09→20:45)
[2022-07-08] MEDS: Nicotine 14 MG PATCH TD SCH (16:01)
[2022-07-08] MEDS: Atorvastatin Calcium 40 MG TAB PO SCH (20:45)
[2022-07-09 04:55] LABS: ALT (SGPT) 13 U/L (8-55); AST (SGOT) 30 U/L (5-34); Albumin 3.2 g/dL (3.4-4.8); Alkaline Phosphatase 62 U/L (40-110); Anion Gap 19 mmol/L (10-20); BUN (Urea Nitrogen) 4 mg/dL (8.4-25.7); Bilirubin, Total 0.8 mg/dL (0.2-1.2); Calc. Creatinine Clearance 93 mL/min (70-130); Calcium 8.6 mg/dL (7.8-10.44); Carbon Dioxide 16 mmol/L (23-31); Chloride 105 mmol/L (98-107); Estimated GFR 84; Globulin 2.9 g/dL (2.4-3.5); Glucose 75 mg/dL (80-115); Protein, Total 6.1 g/dL (5.8-8.1); Sodium 136 mmol/L (136-145)
[2022-07-09 05:01] LABS: Band 6 % (5-11); Eosinophils 2 % (0-10); Hemoglobin 11.1 g/dL (14.0-18.0); Hypochromia SLIGHT = 6-15 cells (100X) (0-5/hpf); Lymphocytes 34 % (21-51); MDiff Complete? YES; Mean Corpuscular HGB CONC 33.2 g/dL (32.0-36.0); Mean Corpuscular Hemoglobin 33.1 pg (27.0-31.0); Mean Corpuscular Volume 99.9 fL (78.0-98.0); Mean Platelet Volume 10.3 fL (7.4-10.4); Monocytes 12 % (0-10); Neutrophil 46 % (42-75); Platelet Count 120 thou/uL (130-400); Platelet Morphology Comment Appears Decreased; RBC Distribution Width 14.1 % (11.5-14.5); Red Blood Cell (RBC) Count 3.35 mill/uL (4.70-6.10); White Blood Cell (WBC) Count 2.5 thou/uL (4.8-10.8)
[2022-07-09] MEDS: Lactated Ringer's 1,000 ML IV SCH ×3 (05:32→17:46)
[2022-07-09] MEDS: Famotidine 20 MG TAB PO SCH ×2 (10:41→21:43)
[2022-07-09] MEDS: Baclofen 10 MG TAB PO SCH ×3 (10:41→21:42)
[2022-07-09] MEDS: Thiamine HCl 200 MG/2 ML VIAL IM SCH (10:42)
[2022-07-09] MEDS: Multivit, Therapeutic 1 TAB PO SCH (10:42)
[2022-07-09] MEDS: Folic Acid 1 MG TAB PO SCH (10:42)
[2022-07-09] MEDS: Apixaban 5 MG TAB PO SCH ×2 (10:42→21:42)
[2022-07-09] MEDS: Nicotine 14 MG PATCH TD SCH (15:56)
[2022-07-09] MEDS: Acetaminophen 500 MG TAB PO PRN (21:43)
[2022-07-09] MEDS: Atorvastatin Calcium 40 MG TAB PO SCH (21:43)
[2022-07-10 07:37] LABS: AST (SGOT) 28 U/L (5-34); Anion Gap 20 mmol/L (10-20); BUN (Urea Nitrogen) 4 mg/dL (8.4-25.7); Bilirubin, Total 0.8 mg/dL (0.2-1.2); Calc. Creatinine Clearance 90 mL/min (70-130); Calcium 8.4 mg/dL (7.8-10.44); Carbon Dioxide 16 mmol/L (23-31); Chloride 106 mmol/L (98-107); Estimated GFR 81; Globulin 2.9 g/dL (2.4-3.5); Glucose 73 mg/dL (80-115); Protein, Total 5.9 g/dL (5.8-8.1); Sodium 138 mmol/L (136-145)
[2022-07-10 07:55] LABS: ALT (SGPT) 11 U/L (8-55); Alkaline Phosphatase 57 U/L (40-110)
[2022-07-10 08:16] LABS: Band 3 % (5-11); Eosinophils 1 % (0-10); Lymphocytes 29 % (21-51); MDiff Complete? YES; Macrocytosis SLIGHT = 6-15 cells (100X) (0-5/hpf); Mean Corpuscular HGB CONC 33.9 g/dL (32.0-36.0); Mean Corpuscular Hemoglobin 34.6 pg (27.0-31.0); Mean Platelet Volume 9.7 fL (7.4-10.4); Monocytes 18 % (0-10); Myelocyte 1 % (0-0); Neutrophil 47 % (42-75); Platelet Count 117 thou/uL (130-400); Platelet Morphology Comment Appears Decreased; RBC Distribution Width 14.2 % (11.5-14.5); Red Blood Cell (RBC) Count 3.48 mill/uL (4.70-6.10); White Blood Cell (WBC) Count 2.3 thou/uL (4.8-10.8)
[2022-07-10] MEDS: Lactated Ringer's 1,000 ML IV SCH ×2 (09:17→22:28)
[2022-07-10] MEDS: Multivit, Therapeutic 1 TAB PO SCH (09:18)
[2022-07-10] MEDS: Baclofen 10 MG TAB PO SCH ×3 (09:18→21:50)
[2022-07-10] MEDS: Famotidine 20 MG TAB PO SCH ×2 (09:18→21:50)
[2022-07-10] MEDS: Folic Acid 1 MG TAB PO SCH (09:18)
[2022-07-10] MEDS: Apixaban 5 MG TAB PO SCH ×2 (09:18→21:50)
[2022-07-10] MEDS: Thiamine 100 MG TAB PO SCH ×3 (09:18→21:50)
[2022-07-10] MEDS: Nicotine 14 MG PATCH TD SCH (17:03)
[2022-07-10] MEDS: Atorvastatin Calcium 40 MG TAB PO SCH (21:50)
[2022-07-10] MEDS: Acetaminophen 500 MG TAB PO PRN (22:33)
[2022-07-11 06:52] LABS: ALT (SGPT) 11 U/L (8-55); AST (SGOT) 24 U/L (5-34); Alkaline Phosphatase 53 U/L (40-110); Anion Gap 17 mmol/L (10-20); BUN (Urea Nitrogen) 4 mg/dL (8.4-25.7); Bilirubin, Total 0.8 mg/dL (0.2-1.2); Calc. Creatinine Clearance 100 mL/min (70-130); Calcium 8.3 mg/dL (7.8-10.44); Carbon Dioxide 20 mmol/L (23-31); Chloride 104 mmol/L (98-107); Estimated GFR 92; Globulin 2.6 g/dL (2.4-3.5); Glucose 71 mg/dL (80-115); Hemoglobin 10.8 g/dL (14.0-18.0); Hypochromia SLIGHT = 6-15 cells (100X) (0-5/hpf); Lymphocytes 20 % (21-51); MDiff Complete? YES; Mean Corpuscular HGB CONC 33.3 g/dL (32.0-36.0); Mean Corpuscular Volume 99.2 fL (78.0-98.0); Mean Platelet Volume 8.5 fL (7.4-10.4); Neutrophil 80 % (42-75); Platelet Count 159 thou/uL (130-400); Platelet Morphology Comment Appears Adequate; Potassium 3.5 mmol/L (3.5-5.1); Protein, Total 5.6 g/dL (5.8-8.1); Red Blood Cell (RBC) Count 3.26 mill/uL (4.70-6.10); Sodium 137 mmol/L (136-145); White Blood Cell (WBC) Count 3.2 thou/uL (4.8-10.8)
[2022-07-11] MEDS ORDERED: Potassium Chloride 20 MEQ TAB PO SCH (08:00)
[2022-07-11] MEDS ORDERED: Iopamidol-370 76% 500 ML 1 ML ONE (09:01)
[2022-07-11] MEDS: Baclofen 10 MG TAB PO SCH (09:12)
[2022-07-11] MEDS: Folic Acid 1 MG TAB PO SCH (09:12)
[2022-07-11] MEDS: Multivit, Therapeutic 1 TAB PO SCH (09:12)
[2022-07-11] MEDS: Apixaban 5 MG TAB PO SCH ×2 (09:13→22:01)
[2022-07-11] MEDS: Lactated Ringer's 1,000 ML IV SCH (09:14)
[2022-07-11] MEDS: Famotidine 20 MG TAB PO SCH ×2 (09:14→22:01)
[2022-07-11] MEDS: Thiamine 100 MG TAB PO SCH ×3 (09:14→22:06)
[2022-07-11] MEDS: Dextrose 5% in Water 1,000 ML IV SCH (13:45)
[2022-07-11] MEDS: Nicotine 14 MG PATCH TD SCH (17:12)
[2022-07-11] MEDS: Atorvastatin Calcium 40 MG TAB PO SCH (22:01)
[2022-07-12] MEDS: Dextrose 5% in Water 1,000 ML IV SCH ×3 (01:45→20:52)
[2022-07-12 05:44] LABS: #Eosinphils 0.1 thou/uL (0.0-0.7); #Lymphocytes 0.8 thou/uL (1.20-3.40); #Monocytes 0.4 thou/uL (0.11-0.59); #Neutrophils 1.5 thou/uL (1.40-6.50); %Eosinophils 2.2 % (0.0-10.0); %Monocytes 14.1 % (0.0-10.0); %Neutrophils 54.7 % (42.0-75.0); Hemoglobin 10.4 g/dL (14.0-18.0); Mean Corpuscular HGB CONC 32.5 g/dL (32.0-36.0); Mean Corpuscular Volume 98.6 fL (78.0-98.0); Mean Platelet Volume 8.5 fL (7.4-10.4); Platelet Count 163 thou/uL (130-400); RBC Distribution Width 13.9 % (11.5-14.5); Red Blood Cell (RBC) Count 3.25 mill/uL (4.70-6.10); White Blood Cell (WBC) Count 2.8 thou/uL (4.8-10.8)
[2022-07-12 06:05] LABS: ALT (SGPT) 10 U/L (8-55); AST (SGOT) 21 U/L (5-34); Albumin 2.9 g/dL (3.4-4.8); Alkaline Phosphatase 58 U/L (40-110); Anion Gap 13 mmol/L (10-20); BUN (Urea Nitrogen) 4 mg/dL (8.4-25.7); Bilirubin, Total 0.8 mg/dL (0.2-1.2); Calc. Creatinine Clearance 94 mL/min (70-130); Carbon Dioxide 22 mmol/L (23-31); Chloride 103 mmol/L (98-107); Estimated GFR 86; Globulin 2.4 g/dL (2.4-3.5); Glucose 110 mg/dL (80-115); Potassium 3.2 mmol/L (3.5-5.1); Protein, Total 5.3 g/dL (5.8-8.1); Sodium 135 mmol/L (136-145)
[2022-07-12 07:12] LABS: Bacteria/HPF None Seen HPF (None Seen); Bilirubin Negative (Negative); Blood, Urine Negative (Negative); Clarity Clear (Clear); Glucose, Urine (Dipstick) 30 mg/dL (Negative); Ketone, Urine 40 mg/dL (Negative); Leukocyte Negative Leu/uL (Negative); Nitrite Negative (Negative); Protein, Urine (Dipstick) 10 mg/dL (Neg-Trace); RBC/HPF 0-3 HPF (0-3); Specific Gravity, Urine 1.037 (1.002-1.036); Squamous Epithelial None Seen HPF (0-3); Urobilinogen Normal mg/dL (Less than 2); WBC/HPF 0-3 HPF (0-3)
[2022-07-12 07:17] LABS: Urine Culture Reflex No No
[2022-07-12] MEDS ORDERED: Potassium Chloride 20 MEQ TAB PO SCH (08:00)
[2022-07-12] MEDS: Multivit, Therapeutic 1 TAB PO SCH (09:39)
[2022-07-12] MEDS: Apixaban 5 MG TAB PO SCH ×2 (09:39→20:49)
[2022-07-12] MEDS: Folic Acid 1 MG TAB PO SCH (09:40)
[2022-07-12] MEDS: Thiamine 100 MG TAB PO SCH ×3 (09:40→20:49)
[2022-07-12] MEDS: Nicotine 14 MG PATCH TD SCH (16:29)
[2022-07-12] MEDS: Atorvastatin Calcium 40 MG TAB PO SCH (20:49)
[2022-07-12] MEDS: Famotidine 20 MG TAB PO SCH (20:49)
[2022-07-13] MEDS: Dextrose 5% in Water 1,000 ML IV SCH ×3 (04:26→22:46)
[2022-07-13 05:49] LABS: #Lymphocytes 0.8 thou/uL (1.20-3.40); #Monocytes 0.4 thou/uL (0.11-0.59); %Basophils 0.2 % (0.0-1.0); %Eosinophils 1.5 % (0.0-10.0); %Lymphocytes 24.8 % (21.0-51.0); %Neutrophils 62.4 % (42.0-75.0); Hemoglobin 10.9 g/dL (14.0-18.0); Mean Corpuscular HGB CONC 33.1 g/dL (32.0-36.0); Mean Corpuscular Hemoglobin 32.7 pg (27.0-31.0); Mean Corpuscular Volume 98.9 fL (78.0-98.0); Mean Platelet Volume 8.7 fL (7.4-10.4); Platelet Count 176 thou/uL (130-400); Red Blood Cell (RBC) Count 3.32 mill/uL (4.70-6.10); White Blood Cell (WBC) Count 3.1 thou/uL (4.8-10.8)
[2022-07-13 06:13] LABS: ALT (SGPT) 8 U/L (8-55); AST (SGOT) 21 U/L (5-34); Albumin 3.1 g/dL (3.4-4.8); Alkaline Phosphatase 64 U/L (40-110); Anion Gap 12 mmol/L (10-20); BUN (Urea Nitrogen) 4 mg/dL (8.4-25.7); Bilirubin, Total 1.1 mg/dL (0.2-1.2); Calc. Creatinine Clearance 100 mL/min (70-130); Calcium 8.2 mg/dL (7.8-10.44); Carbon Dioxide 22 mmol/L (23-31); Chloride 103 mmol/L (98-107); Estimated GFR 92; Globulin 2.7 g/dL (2.4-3.5); Glucose 107 mg/dL (80-115); Potassium 3.4 mmol/L (3.5-5.1); Protein, Total 5.8 g/dL (5.8-8.1); Sodium 134 mmol/L (136-145)
[2022-07-13] MEDS ORDERED: Potassium Chloride 20 MEQ TAB PO SCH (08:00)
[2022-07-13] MEDS: Famotidine 20 MG TAB PO SCH ×2 (08:51→21:47)
[2022-07-13] MEDS: Apixaban 5 MG TAB PO SCH ×2 (08:51→21:48)
[2022-07-13] MEDS: Multivit, Therapeutic 1 TAB PO SCH (08:51)
[2022-07-13] MEDS: Folic Acid 1 MG TAB PO SCH (08:51)
[2022-07-13] MEDS: Thiamine 100 MG TAB PO SCH ×3 (08:51→21:47)
[2022-07-13] MEDS ORDERED: Iopamidol-370 76% 500 ML 1 ML ONE (09:09)
[2022-07-13] MEDS: Baclofen 10 MG TAB PO SCH ×2 (13:37→21:47)
[2022-07-13] MEDS: Nicotine 14 MG PATCH TD SCH (14:38)
[2022-07-13] MEDS: Atorvastatin Calcium 40 MG TAB PO SCH (21:47)
[2022-07-14] MEDS ORDERED: Thiamine HCl 200 MG/2 ML VIAL SLOW IVP SCH (08:15)
[2022-07-14] MEDS: Folic Acid 1 MG TAB PO SCH (08:46)
[2022-07-14] MEDS: Famotidine 20 MG TAB PO SCH ×2 (08:46→20:34)
[2022-07-14] MEDS: Apixaban 5 MG TAB PO SCH ×2 (08:47→20:34)
[2022-07-14] MEDS: Aspirin 300 MG Suppository PR SCH (08:47)
[2022-07-14] MEDS: Aspirin 81 mg Enteric Coated Tablet PO SCH (08:47)
[2022-07-14] MEDS: Multivit, Therapeutic 1 TAB PO SCH (08:47)
[2022-07-14] MEDS: Thiamine 100 MG TAB PO SCH (08:47)
[2022-07-14 09:46] LABS: #Eosinphils 0.1 thou/uL (0.0-0.7); #Lymphocytes 0.8 thou/uL (1.20-3.40); #Monocytes 0.4 thou/uL (0.11-0.59); #Neutrophils 2.7 thou/uL (1.40-6.50); %Basophils 0.2 % (0.0-1.0); %Eosinophils 1.8 % (0.0-10.0); %Monocytes 10.8 % (0.0-10.0); %Neutrophils 68.2 % (42.0-75.0); Hemoglobin 11.3 g/dL (14.0-18.0); Mean Corpuscular HGB CONC 33.3 g/dL (32.0-36.0); Mean Corpuscular Hemoglobin 33.1 pg (27.0-31.0); Mean Corpuscular Volume 99.4 fL (78.0-98.0); Mean Platelet Volume 9.5 fL (7.4-10.4); Platelet Count 185 thou/uL (130-400); RBC Distribution Width 13.8 % (11.5-14.5); Red Blood Cell (RBC) Count 3.42 mill/uL (4.70-6.10)
[2022-07-14 09:58] LABS: ALT (SGPT) 8 U/L (8-55); AST (SGOT) 20 U/L (5-34); Albumin 3.1 g/dL (3.4-4.8); Alkaline Phosphatase 76 U/L (40-110); Anion Gap 12 mmol/L (10-20); BUN (Urea Nitrogen) 4 mg/dL (8.4-25.7); Bilirubin, Total 1.2 mg/dL (0.2-1.2); Calc. Creatinine Clearance 89 mL/min (70-130); Calcium 8.3 mg/dL (7.8-10.44); Carbon Dioxide 22 mmol/L (23-31); Chloride 103 mmol/L (98-107); Estimated GFR 80; Globulin 2.9 g/dL (2.4-3.5); Glucose 111 mg/dL (80-115); Potassium 3.6 mmol/L (3.5-5.1); Sodium 133 mmol/L (136-145)
[2022-07-14] MEDS ORDERED: Magnevist 469MG/ML 20 ML VIAL ONE (15:42)
[2022-07-14] MEDS: Nicotine 14 MG PATCH TD SCH (18:20)
[2022-07-14] MEDS: Dextrose 5% in Water 1,000 ML IV SCH (18:21)
[2022-07-14] MEDS: Atorvastatin Calcium 40 MG TAB PO SCH (20:34)
[2022-07-15] MEDS: Dextrose 5% in Water 1,000 ML IV SCH ×2 (03:56→23:31)
[2022-07-15 08:59] LABS: #Eosinphils 0.1 thou/uL (0.0-0.7); #Lymphocytes 0.7 thou/uL (1.20-3.40); #Monocytes 0.4 thou/uL (0.11-0.59); #Neutrophils 3.1 thou/uL (1.40-6.50); %Basophils 0.3 % (0.0-1.0); %Eosinophils 3.3 % (0.0-10.0); %Monocytes 8.4 % (0.0-10.0); Mean Corpuscular Hemoglobin 32.3 pg (27.0-31.0); Mean Platelet Volume 9.5 fL (7.4-10.4); Platelet Count 167 thou/uL (130-400); Red Blood Cell (RBC) Count 3.42 mill/uL (4.70-6.10); White Blood Cell (WBC) Count 4.3 thou/uL (4.8-10.8)
[2022-07-15] MEDS: Famotidine 20 MG TAB PO SCH ×2 (09:03→20:28)
[2022-07-15] MEDS: Thiamine 100 MG TAB PO SCH (09:03)
[2022-07-15] MEDS: Aspirin 81 mg Enteric Coated Tablet PO SCH (09:03)
[2022-07-15] MEDS: Multivit, Therapeutic 1 TAB PO SCH (09:03)
[2022-07-15] MEDS: Folic Acid 1 MG TAB PO SCH (09:03)
[2022-07-15] MEDS: Apixaban 5 MG TAB PO SCH ×2 (09:04→20:27)
[2022-07-15] MEDS: Aspirin 300 MG Suppository PR SCH (09:04)
[2022-07-15 09:14] LABS: ALT (SGPT) 9 U/L (8-55); AST (SGOT) 29 U/L (5-34); Albumin 3.3 g/dL (3.4-4.8); Alkaline Phosphatase 81 U/L (40-110); Anion Gap 16 mmol/L (10-20); BUN (Urea Nitrogen) 5 mg/dL (8.4-25.7); Bilirubin, Total 1.5 mg/dL (0.2-1.2); Calc. Creatinine Clearance 89 mL/min (70-130); Calcium 8.5 mg/dL (7.8-10.44); Carbon Dioxide 16 mmol/L (23-31); Chloride 106 mmol/L (98-107); Estimated GFR 80; Globulin 3.2 g/dL (2.4-3.5); Glucose 101 mg/dL (80-115); Potassium 4.6 mmol/L (3.5-5.1); Protein, Total 6.5 g/dL (5.8-8.1); Sodium 133 mmol/L (136-145)
[2022-07-15] MEDS: Nicotine 14 MG PATCH TD SCH (16:06)
[2022-07-15] MEDS: Atorvastatin Calcium 40 MG TAB PO SCH (20:28)
[2022-07-16 05:56] LABS: #Lymphocytes 0.7 thou/uL (1.20-3.40); #Monocytes 0.5 thou/uL (0.11-0.59); %Basophils 0.2 % (0.0-1.0); %Eosinophils 0.9 % (0.0-10.0); %Monocytes 10.7 % (0.0-10.0); %Neutrophils 71.2 % (42.0-75.0); Hemoglobin 10.8 g/dL (14.0-18.0); Mean Corpuscular HGB CONC 34.1 g/dL (32.0-36.0); Mean Corpuscular Hemoglobin 33.2 pg (27.0-31.0); Mean Corpuscular Volume 97.6 fL (78.0-98.0); Mean Platelet Volume 9.5 fL (7.4-10.4); Platelet Count 175 thou/uL (130-400); RBC Distribution Width 13.9 % (11.5-14.5); Red Blood Cell (RBC) Count 3.25 mill/uL (4.70-6.10); White Blood Cell (WBC) Count 4.3 thou/uL (4.8-10.8)
[2022-07-16 06:18] LABS: ALT (SGPT) 11 U/L (8-55); AST (SGOT) 20 U/L (5-34); Albumin 3.2 g/dL (3.4-4.8); Alkaline Phosphatase 85 U/L (40-110); Anion Gap 13 mmol/L (10-20); BUN (Urea Nitrogen) 7 mg/dL (8.4-25.7); Bilirubin, Total 1.3 mg/dL (0.2-1.2); Calc. Creatinine Clearance 96 mL/min (70-130); Calcium 8.4 mg/dL (7.8-10.44); Carbon Dioxide 22 mmol/L (23-31); Chloride 102 mmol/L (98-107); Estimated GFR 88; Glucose 94 mg/dL (80-115); Potassium 3.9 mmol/L (3.5-5.1); Protein, Total 6.2 g/dL (5.8-8.1); Sodium 133 mmol/L (136-145)
[2022-07-16 08:01] VITALS: BP 133/84; TEMP 97.7
[2022-07-16] MEDS: Famotidine 20 MG TAB PO SCH (09:38)
[2022-07-16] MEDS: Folic Acid 1 MG TAB PO SCH (09:38)
[2022-07-16] MEDS: Thiamine 100 MG TAB PO SCH (09:38)
[2022-07-16] MEDS: Apixaban 5 MG TAB PO SCH (09:39)
[2022-07-16] MEDS: Multivit, Therapeutic 1 TAB PO SCH (09:39)
[2022-07-16] MEDS: Aspirin 81 mg Enteric Coated Tablet PO SCH (09:39)
[2022-07-16] MEDS: Aspirin 300 MG Suppository PR SCH (09:39)
[2022-07-16] MEDS: Dextrose 5% in Water 1,000 ML IV SCH (12:28)
[2022-07-16] MEDS ORDERED: Thiamine 100 MG TAB PO SCH (18:00)
== END 2022-07-16 15:30 | DRG 896 ==
LOC: ERS 09:46 → ERHOLD 14:28 → NEURO 20:37 → OBSVTOIN 06-30 19:20 → IMCU/EMU 07-02 13:31 → 2NO 07-05 11:52 → T4-B 07-09 17:18
PROVIDERS: ADMIT Family Medicine; ATTEND Family Medicine
DX: F10.231 Alcohol dependence with withdrawal delirium (principal); G93.41 Metabolic encephalopathy; U07.1 COVID-19; J69.0 Pneumonitis due to inhalation of food and vomit; E51.2 Wernicke's encephalopathy; G45.9 Transient cerebral ischemic attack, unspecified; I47.1 Supraventricular tachycardia; N17.9 Acute kidney failure, unspecified; I12.9 Hypertensive chronic kidney disease with stage 1 through stage 4 chronic kidney disease, or unspecified chronic kidney disease; N18.32 Chronic kidney disease, stage 3b; G89.4 Chronic pain syndrome; M47.812 Spondylosis without myelopathy or radiculopathy, cervical region; M48.02 Spinal stenosis, cervical region; F17.210 Nicotine dependence, cigarettes, uncomplicated; I48.0 Paroxysmal atrial fibrillation; D69.6 Thrombocytopenia, unspecified; R62.7 Adult failure to thrive; G93.89 Other specified disorders of brain; F10.259 Alcohol dependence with alcohol-induced psychotic disorder, unspecified; Z86.73 Personal history of transient ischemic attack (TIA), and cerebral infarction without residual deficits; Z79.899 Other long term (current) drug therapy; Z68.23 Body mass index [BMI] 23.0-23.9, adult
CPT/HCPCS: 36415; 36416; 70450; 70551; 70553; 71045; 71260; 72141; 74177; 80053; 80061; 80202; 80306; 81001; 82140; 82248; 82274; 82533; 83605; 83735; 84100; 84439; 84443; 84484; 85025; 85610; 85730; 86140; 86780; 87040; 87324; 87449; 87505; 93005; 93010; 93306; 93880; 94760; 95816; 95819; 95957; 96374; 96375; 96376; A9579; G0378; J0692; J0696; J2060; J2250; J2405; J3370; J3411; J3475; J3480; J3490; J7050; J7070; J7120; Q0162; Q9967; U0003; U0005